=== PATIENT | male | born 1980 | race Caucasian/White ===

== ENCOUNTER 2017-03-13 19:41 | Emergency (ER) | payer OTHER ==
--- NOTE | 2017-03-13 20:45 | EDPHY ---
H & P HPI/ROS: Chief complaint: Right wrist laceration History of present illness: 36-year-old male presents to the emergency department for a right wrist laceration. Patient states earlier today he struck his wrist against a glass sitting on the counter, the glass broke and cut his wrist. He noticed a small cut. Minimal pain. Minimal bleeding. No report of abnormal coolness or paresthesias in the hand. Tetanus is up-to-date. Smoking Status: Never smoked Physical Exam: General: Alert, nontoxic Skin: 0.5 cm laceration to the medial aspect of the right wrist Musculoskeletal: Full range of motion and strength all thomason of the right wrist Vascular: Capillary refill brisk in all digits of the right hand, radial pulse 2 + Neurologic: Sensation intact in the right hand Constitutional: Initial Vital Signs Temperature (C) 37.1 C 03/13/17 19:56 Heart Rate 76 03/13/17 19:56 Respiratory Rate 20 03/13/17 19:56 Blood Pressure 125/80 H 03/13/17 19:56 O2 Delivery Mode Room Air Allergies/Adverse Reactions: No Known Allergies Allergy (Unverified 03/13/17 19:56) Home Medications: Medication Instructions Recorded NK [No Known Home Meds] 03/13/17 MDM/Departure - MDM Procedures: Procedure: Laceration repair. Verbal consent was obtained from the patient. The 0.5 cm laceration on the medial aspect of the right wrist was anesthetized in the usual fashion. The wound was irrigated, draped and explored to its base with a gloved finger. There were no deep structures involved. No tendon injury was identified. The wound was repaired with 5 0 Ethilon, 2 simple interrupted sutures. The wound repair was simple. The procedure was performed by myself. ED Course/Re-evaluation: Patient seen under the supervision of my secondary supervising physician Dr. Robert Stinson. Patient presents to the emergency department for laceration to his right wrist. The hand is neurovascularly intact. Good musculoskeletal control. Tetanus is already up-to-date. Wound is cleaned, repaired and dressed. Home care is discussed. Return precautions are given. - Depart Disposition: Home, Routine, Self-Care Clinical Impression: Hand laceration Qualifiers: Encounter type: initial encounter Foreign body presence: without foreign body Laterality: right Qualified Code(s): S61.411A - Laceration without foreign body of right hand, initial encounter Condition: Good Instructions: Laceration (ED), Acute Wounds (ED) Additional Instructions: Follow-up with a primary care doctor for recheck this week Stitches to be removed in 7 days If symptoms worsen or new symptoms develop return to the emergency room for recheck Referrals: NONE *PRIMARY CARE P,. [Primary Care Provider] - As per Instructions [facility],. [Clinic] - As per Instructions
[2017-03-13 20:59] VITALS: BP 134/76; PULSE 76; RESP 14; TEMP 98.1; O2SAT 98
== END 2017-03-13 20:59 | disposition home or self-care (01) ==
PROC: 0HQDXZZ Repair Right Lower Arm Skin, External Approach (ICD-10-PCS; principal; 2017-03-13)
DX: S61.511A Laceration without foreign body of right wrist, initial encounter (principal); W25.XXXA Contact with sharp glass, initial encounter